=== PATIENT | female | born 1995 | race Two or more races ===

== ENCOUNTER 2016-09-27 21:14 | Emergency (ER) | payer OTHER ==
[2016-09-27 21:20] VITALS: BP 134/70; PULSE 63; BMI 29.8
--- NOTE | 2016-09-27 22:35 | PDOC ---
History of Present Illness - General Chief Complaint: Allergic Reaction Stated Complaint: ALLERGIC REACTION Time Seen by Provider: 09/27/16 21:55 History Source: Patient Exam Limitations: No Limitations - History of Present Illness Initial Comments: 09/27/16 22:38 My chief complaint: History of present illness: Patient is a 20-year-old female with a history of facial acne here today complaining of feeling slightly nauseous, weak, lightheaded. patient started to feel anxious, palpitations that lasted until she came here. She ate only one bagel this morning and then took her minocycline around 2:00 and at 5 pm felt lightheaded, nausea, weak and at 9 pm started to panic and have palpitations with tingling of face and fingers. Pt.has been taking this medication for a few years and they were not new. Patient denies any other medical problems. Patient is getting her menstrual cycle. She denies having any diaphoresis or any fever, sore throat cough chest discomfort or any difficulty breathing. Patient denies any diarrhea. 09/27/16 23:01 Timing/Duration: changing over time, other (slight lightheadedness now) Associated Symptoms: reports: other (lightheaded, tingling in fingers & face, palpitations,nausea) Past History - Past Medical History Allergies/Adverse Reactions: Allergies Allergy/AdvReac Type Severity Reaction Status Date / Time No Known Allergies Allergy Verified 09/27/16 21:20 Home Medications: Ambulatory Orders Minocycline HCl/Skin Cl No.4 [Minocin Kit 50 mg Combo] 50 mg MC ASDIR 12/29/14 - Immunization History Immunization Up to Date: Yes - Psycho/Social/Smoking Cessation Hx Anxiety: No Suicidal Ideation: No Smoking History: Never smoked Have you smoked in the past 12 months: No Hx Alcohol Use: No Drug/Substance Use Hx: No Substance Use Type: None Review of Systems - Review of Systems Able to Perform ROS?: Yes Constitutional: No: Symptoms Reported HEENTM: No: Symptoms Reported Respiratory: No: Symptoms reported Cardiac (ROS): Yes: Lightheadedness, Palpitations ABD/GI: Yes: Nausea (none now ) : No: Symptoms Reported Integumentary: No: Symptoms Reported Neurological: No: Symptoms reported *Physical Exam - Vital Signs Last Vital Signs Temp Pulse Resp BP Pulse Ox 97 F L 63 18 134/70 99 09/27/16 21:15 09/27/16 21:15 09/27/16 21:15 09/27/16 21:15 09/27/16 21:15 - Physical Exam General Appearance: Yes: Appropriately Dressed HEENT: positive: EOMI, PALOMO, Normal ENT Inspection Neck: negative: Lymphadenopathy (R), Lymphadenopathy (L) Respiratory/Chest: positive: Lungs Clear, Normal Breath Sounds. negative: Chest Tender, Respiratory Distress Cardiovascular: positive: Regular Rhythm, Regular Rate, S1, S2 Gastrointestinal/Abdominal: positive: Normal Bowel Sounds, Soft. 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 negative: Numbness, Sensory Deficit (on hands, arms and legs) Medical Decision Making - Medical Decision Making 09/27/16 23:02 Patient is a 20-year-old female with a history of facial acne here today complaining of feeling slightly nauseous, weak, lightheaded. patient started to feel anxious, palpitations that lasted until she came here. She ate only one bagel this morning and then took her minocycline around 2:00 and at 5 pm felt lightheaded, nausea, weak and at 9 pm started to panic and have palpitations with tingling of face and fingers. Pt.has been taking this medication for a few years and they were not new. Patient denies any other medical problems. Patient is getting her menstrual cycle. She denies having any diaphoresis or any fever, sore throat cough chest discomfort or any difficulty breathing. Patient denies any diarrhea. She reports being sexually active and does not use any control. pt.'s last menstrual cycle was 08/27/16 r/o r/o hypoglycemia panic attack nausea PLAN: urine hcg negative BG 110 zofran 4 mg sl now pt. able to eat and drink feeling better r 09/27/16 23:04 09/27/16 23:04 09/27/16 23:06 *DC/Admit/Observation/Transfer Diagnosis at time of Disposition: Panic attack, Nausea - Discharge Dispostion Condition at time of disposition: Stable - Patient Instructions Additional Instructions: Rest and drink fluids as tolerated need foods as tolerated Follow-up with your primary care provider within the next couple of days Return to emergency room if symptoms worsen or new symptoms develop Patient voiced understanding of discharge instructions and all questions were answered
[2016-09-27] MEDS ORDERED: ONDANSETRON *ODT* 4 MG TABLET ONE (22:57)
[2016-09-27] MEDS ORDERED: ONDANSETRON *ODT* 4 MG TABLET SL ONE (23:01)
[2016-09-27 23:07] VITALS: TEMP 98.3
== END 2016-09-27 23:07 | disposition home or self-care (01) ==
LOC: JERFT 21:14
DX: F41.0 Panic disorder [episodic paroxysmal anxiety] (principal); R11.0 Nausea
CPT/HCPCS: 84703; 99281-25

== ENCOUNTER 2016-12-27 05:18 | Emergency (ER) | payer OTHER ==
[2016-12-27 05:44] VITALS: TEMP 97.8; BMI 29.7
--- NOTE | 2016-12-27 05:51 | PDOC ---
History of Present Illness - General Chief Complaint: Back Pain Stated Complaint: LOW BACK PAIN Time Seen by Provider: 12/27/16 05:24 History Source: Patient Exam Limitations: No Limitations - History of Present Illness Initial Comments: 12/27/16 05:47 20yo Female patient with no significant past medical history presents to ED c/o atraumatic back pain that started around 230am this morning after getting off work. Patient states having similar symptoms previously, but today worse. She denies fever, CP, Abd pain, n/v/d, dizziness, confusion, disorientation, dysuria , hematuria, vaginal bleeding, discharge or odor. Past History - Travel Traveled outside of the country in the last 30 days: No Close contact w/someone who was outside of country & ill: No - Past Medical History Allergies/Adverse Reactions: Allergies Allergy/AdvReac Type Severity Reaction Status Date / Time No Known Allergies Allergy Verified 12/27/16 05:37 Home Medications: Ambulatory Orders Minocycline HCl/Skin Cl No.4 [Minocin Kit 50 mg Combo] 50 mg MC ASDIR 12/29/14 Cephalexin [Keflex] 500 mg PO BID #14 capsule 12/27/16 - Immunization History Immunization Up to Date: Yes - Psycho/Social/Smoking Cessation Hx Anxiety: No Suicidal Ideation: No Smoking History: Never smoked Have you smoked in the past 12 months: No Number of Cigarettes Smoked Daily: 0 Information on smoking cessation initiated: No Hx Alcohol Use: No Drug/Substance Use Hx: No Substance Use Type: None Review of Systems - Review of Systems Able to Perform ROS?: Yes Is the patient limited Vincentian proficient: No Constitutional: No: Chills, Fever : Yes: Flank Pain. No: Burning, Dysuria, Discharge, Hematuria, Pain, Urgency Musculoskeletal: Yes: Back Pain All Other Systems: Reviewed and Negative *Physical Exam - Vital Signs Last Vital Signs Temp Pulse Resp BP Pulse Ox 97.8 F 72 16 106/45 100 12/27/16 05:33 12/27/16 05:33 12/27/16 05:33 12/27/16 05:33 12/27/16 05:33 - Physical Exam General Appearance: Yes: Nourished, Appropriately Dressed. No: Apparent Distress, Mild Distress, Moderate Distress, Severe Distress Neck: positive: Trachea midline, Normal Thyroid, Supple. negative: Rigid, Stridor, Lymphadenopathy (R), Lymphadenopathy (L), Rigidity, Tender lateral, Tender midline, Thyromegaly Respiratory/Chest: positive: Lungs Clear, Normal Breath Sounds. negative: Chest Tender, Respiratory Distress, Accessory Muscle Use, Labored Respiration, Rapid RR, Rhonchi, Stridor, Wheezing Cardiovascular: positive: Regular Rhythm, Regular Rate Gastrointestinal/Abdominal: positive: Normal Bowel Sounds, Soft. negative: Distended, Guarding, Rebound, Tenderness Musculoskeletal: positive: Normal Inspection. negative: CVA Tenderness Extremity: positive: Normal Capillary Refill, Normal Inspection, Normal Range of Motion. negative: Pedal Edema, Swelling, Calf Tenderness, Erythema, Inflammation Integumentary: positive: Normal Color, Dry, Warm. 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, Fully Oriented, Alert, Normal Mood/ Affect, Normal Response, Motor Strength 08/22 ED Treatment Course - LABORATORY CBC & Chemistry Diagram: 12/27/16 05:37 12/27/16 05:37 - RADIOLOGY Radiology Studies Ordered: Category Date Time Status SPINE-LUMBAR ONLY [RAD] Stat Radiology 12/27/16 05:35 Ordered *DC/Admit/Observation/Transfer Diagnosis at time of Disposition: UTI (urinary tract infection) Qualifiers: Urinary tract infection type: acute cystitis Hematuria presence: without hematuria Qualified Code(s): N30.00 - Acute cystitis without hematuria - Discharge Dispostion Disposition: HOME Condition at time of disposition: Stable Admit: No - Prescriptions Prescriptions: Cephalexin [Keflex] 500 mg PO BID #14 capsule - Referrals Referrals: Natalee Carolina MD [Primary Care Provider] - - Patient Instructions Printed Discharge Instructions: DI for Urinary Tract Infection (UTI) Additional Instructions: Follow up with your primary care provider this week for further evaluation. Take medications as prescribed. Return if symptoms worsen or any concerns for further evaluation. Drink plenty fluids (water). Print Language: YORUBA - Post Discharge Activity Work/School Note: Back to Work
[2016-12-27 06:06] LABS: BASOPHIL 0.3 % (0-2.0); EOSINOPHIL 0.8 % (0-4.5); MCH 24.7 pg (25.7-33.7); MCHC 32.7 g/dl (32.0-36.0); MEAN CELL VOLUME 75.4 fl (80-96); MEAN PLT VOLUME 8.3 fl (7.5-11.1); PLATELET COUNT 203 K/MM3 (134-434); RDW 14.6 % (11.6-15.6); WHITE BLOOD COUNT 12.1 K/mm3 (4.0-10.0)
[2016-12-27 06:08] LABS: URINE APPEARANCE CLEAR; URINE BILIRUBIN NEGATIVE (NEGATIVE); URINE BLOOD NEGATIVE (NEGATIVE); URINE COLOR LTYELLOW; URINE GLUCOSE (UA) NEGATIVE (NEGATIVE); URINE KETONE NEGATIVE (NEGATIVE); URINE NITRITE NEGATIVE (NEGATIVE); URINE PROTEIN NEGATIVE (NEGATIVE); URINE UROBILINOGEN NEGATIVE mg/dL (0.2-1.0)
[2016-12-27 06:20] LABS: URINE LEUK ESTERASE 2+ (NEGATIVE)
[2016-12-27 06:21] LABS: URINE MUCUS RARE; URINE RBC 1 /hpf (0-3); URINE WBC 16 /hpf (3-5)
[2016-12-27 06:37] LABS: ALBUMIN 3.5 g/dl (3.4-5.0); ANION GAP 10 (8-16); BILIRUBIN,TOTAL 0.3 mg/dL (0.2-1.0); CALCIUM 8.5 mg/dL (8.5-10.1); CO2 24 mmol/L (21-32); CREATININE 0.6 mg/dL (0.55-1.02); GLUCOSE,RANDOM 106 mg/dL (74-106); SGOT/AST 26 U/L (15-37); SGPT/ALT 26 U/L (12-78); TOT PROT 6.4 g/dl (6.4-8.2)
[2016-12-27 06:38] LABS: ALK PHOS 61 U/L (45-117)
[2016-12-27] MEDS ORDERED: CEPHALEXIN MONOHYDRATE 500 MG CAPSULE (UD) PO ONE (06:45)
[2016-12-27] MEDS ORDERED: PHENAZOPYRIDINE HCL 100 MG TABLET (FP) PO ONE (06:45)
[2016-12-27] MEDS ORDERED: PHENAZOPYRIDINE HCL 100 MG TABLET (FP) ONE (06:51)
[2016-12-27] MEDS ORDERED: CEPHALEXIN MONOHYDRATE 250 MG CAPSULE (FP) ONE (06:51)
[2016-12-27 07:14] VITALS: BP 118/60; PULSE 75
== END 2016-12-27 07:19 | disposition home or self-care (01) ==
LOC: JER 05:18
DX: N30.00 Acute cystitis without hematuria (principal)
CPT/HCPCS: 36415; 72100-TC; 80053; 81003; 81015; 84703; 85025; 87086; 99282-25

== ENCOUNTER 2018-02-24 21:30 | Emergency (ER) | payer OTHER ==
[2018-02-24 21:40] VITALS: BP 125/81; PULSE 72; TEMP 98.4; BMI 26.6
--- NOTE | 2018-02-24 22:07 | PDOC ---
History of Present Illness - General Chief Complaint: Pain Stated Complaint: BACK PAIN Time Seen by Provider: 02/24/18 22:00 - History of Present Illness Initial Comments: 02/24/18 22:05 22-year-old female with lower back pain times one hour without radicular symptoms no comorbidities no loss of bowel bladder function or saddle paresthesia is have resolved since coming to the emergency room Past History - Past Medical History Allergies/Adverse Reactions: Allergies Allergy/AdvReac Type Severity Reaction Status Date / Time No Known Allergies Allergy Verified 02/24/18 21:41 Home Medications: Ambulatory Orders Minocycline HCl/Skin Cl No.4 [Minocin Kit 50 mg Combo] 50 mg MC ASDIR 12/29/14 Cephalexin [Keflex] 500 mg PO BID #14 capsule 12/27/16 Cyclobenzaprine HCl [Flexeril 10 mg] 10 mg PO HS PRN #10 tablet 02/24/18 Ibuprofen [Motrin -] 600 mg PO TID #30 tablet 02/24/18 COPD: No - Immunization History Immunization Up to Date: Yes - Suicide/Smoking/Psychosocial Hx Smoking History: Never smoked Have you smoked in the past 12 months: No Number of Cigarettes Smoked Daily: 0 Hx Alcohol Use: No Drug/Substance Use Hx: No Substance Use Type: None Review of Systems - Review of Systems Musculoskeletal: Yes: Back Pain *Physical Exam - Vital Signs Last Vital Signs Temp Pulse Resp BP Pulse Ox 98.4 F 72 18 125/81 100 02/24/18 21:36 02/24/18 21:36 02/24/18 21:36 02/24/18 21:36 02/24/18 21:36 - Physical Exam Comments: 02/24/18 22:06 HEAD: NC/AT EYES: Conjuntiva clear Ears: Canals and TM's normal NOSE: No d/c THROAT: Moist mucous membrances, oral pharanx clear, uvula midline NECK: Supple without adenopathy CARDIAC: S1 S2 LUNGS: CTA Full and Equal breath sounds ABDOMEN: Soft NT ND MS: Full ROM in all joints without edema NEUROLOGIC: No gross sensory or motor deficits, NVID SKIN: Normal color and temperature no lesions or rashes By spine skin color and temperature are normal range of motion is full and painful. She has moderate paralumbar musculature spasm. No tenderness. No CVA tenderness. 5 out of 5 strength in bilateral lower extremities without gross sensorimotor deficits negative straight leg raise test. She's neurovascular intact. Medical Decision Making - Medical Decision Making Had discussion with the patient the etiology of her symptoms. Her pain appears to be musculoskeletal L have prescribed for her muscle relaxer and anti- inflammatory as well as spine surgery follow-up. She states there is no chance of 02/24/18 22:04 *DC/Admit/Observation/Transfer Diagnosis at time of Disposition: Back pain - Discharge Dispostion Disposition: HOME Condition at time of disposition: Stable Decision to Admit order: No - Prescriptions Prescriptions: Cyclobenzaprine HCl [Flexeril 10 mg] 10 mg PO HS PRN #10 tablet PRN Reason: Muscle Spasms Ibuprofen [Motrin -] 600 mg PO TID #30 tablet - Referrals Referrals: Natalee Carolina MD [Primary Care Provider] - Lewis Hutton MD [Staff Physician] - - Patient Instructions Printed Discharge Instructions: Low Back Pain, DI for Low Back Pain Additional Instructions: The anti-inflammatory I have prescribed a few is 3 times a day with food it's one tablet 3 times a day. Discontinue the medication at the bothers her stomach. Return to the emergency room should symptoms worsen ago unresolved follow-up with spine surgery in 2-3 days for further evaluation and treatment options. Muscle relaxers one tablet before bedtime and will make you sleepy - Post Discharge Activity
== END 2018-02-24 22:11 | disposition home or self-care (01) ==
LOC: JERFT 21:30
DX: M54.5 Low back pain (principal)
CPT/HCPCS: 99281-25

== ENCOUNTER 2019-05-12 20:23 | Emergency (ER) | payer OTHER ==
--- NOTE | 2019-05-12 20:30 | PDOC ---
Rapid Medical Evaluation Time Seen by Provider: 05/12/19 20:26 Medical Evaluation: Allergies Allergy/AdvReac Type Severity Reaction Status Date / Time No Known Allergies Allergy Verified 02/24/18 21:41 05/12/19 20:28 CC: sharp back pain radiating around abdomen PE: No focal findings Orders: labs, urine Patient will proceed to ED for further evaluation. Discharge Disposition - Diagnosis Back pain - Referrals - Patient Instructions - Post Discharge Activity
[2019-05-12 20:32] VITALS: BP 146/90; PULSE 82; TEMP 97.8; BMI 27.3
--- NOTE | 2019-05-12 21:59 | PDOC ---
History of Present Illness - General Chief Complaint: Back Pain Stated Complaint: BACK PAIN Time Seen by Provider: 05/12/19 20:26 History Source: Patient Exam Limitations: No Limitations - History of Present Illness Initial Comments: 05/12/19 22:30 Chief complaint: Back pain Patient is a healthy 23-year-old female who was playing video games and developed sudden severe back pain that went on her whole back and then around her abdomen. She states she had this before, the last time a year ago, was seen here and told it was a back spasm. Patient is asymptomatic now. Patient did not take medicine at home but her mother put some kind of cream on her back when it happened. Patient has no fever, headache, shortness of breath, chest pain, nausea vomiting, abdominal pain or numbness. Patient is not on control, no recent travel, no family history of blood clots. GENERAL/CONSTITUTIONAL: No fever, weakness. dizziness HEAD, EYES, EARS, NOSE AND THROAT: No change in vision. No ear pain or discharge. No sore throat. CARDIOVASCULAR: No chest pain RESPIRATORY: No shortness of breath or cough GASTROINTESTINAL: No pain, nausea, vomiting, diarrhea or constipation GENITOURINARY: No dysuria MUSCULOSKELETAL: No neck or back pain SKIN: No rash NEUROLOGIC: No headache, vertigo, loss of consciousness, or loss of sensation. GENERAL: The patient is awake, alert, and fully oriented, in no acute distress. HEAD: Normal with no signs of trauma. EYES: Pupils equal, round and reactive to light, sclera anicteric, conjunctiva clear. ENT: pharynx: no erythema, no exudate, uvula midline NECK: supple CHEST: clear, nontender, rr ABD: soft, nontender BACK: no tenderness or signs of injury EXTREMITIES: Normal range of motion, no edema. NEUROLOGICAL: Normal speech, normal gait. Cranial nerves II through XII grossly intact, no gross focal abnormalities SKIN: Warm, Dry Past History - Past Medical History Allergies/Adverse Reactions: Allergies Allergy/AdvReac Type Severity Reaction Status Date / Time No Known Allergies Allergy Verified 05/12/19 20:32 Home Medications: Ambulatory Orders Cyclobenzaprine HCl [Flexeril 10 mg] 10 mg PO HS PRN #10 tablet 02/24/18 Ibuprofen [Motrin -] 600 mg PO TID #30 tablet 02/24/18 COPD: No - Immunization History Immunization Up to Date: Yes - Psycho Social/Smoking Cessation Hx Smoking History: Never smoked Have you smoked in the past 12 months: No Number of Cigarettes Smoked Daily: 0 Information on smoking cessation initiated: No Hx Alcohol Use: No Drug/Substance Use Hx: No Substance Use Type: None *Physical Exam - Vital Signs Last Vital Signs Temp Pulse Resp BP Pulse Ox 97.8 F 82 18 146/90 100 05/12/19 20:29 05/12/19 20:29 05/12/19 20:29 05/12/19 20:29 05/12/19 20:29 Medical Decision Making - Medical Decision Making 05/12/19 22:32 Healthy 23-year-old female who had back spasms at home prior to coming to ER, are now gone. Patient is not on control and has no risk factors for PE and clinical scenario is not consistent with PE. Patient appears well, vitals are stable, she is not tachycardic, she is not hypoxic. She denies any urinary symptoms. Patient is completely asymptomatic now. Patient does not need any further work-up and will be discharged home Discussed issues, findings, results, applicable medications and treatments and follow-up. All these were understood and all questions were answered Discharge - Discharge Information Problems reviewed: Yes Clinical Impression/Diagnosis: Back pain Qualifiers: Back pain location: back pain in unspecified location Chronicity: acute Back pain laterality: unspecified Qualified Code(s): M54.9 - Dorsalgia, unspecified Condition: Stable Disposition: HOME - Admission No - Follow up/Referral Referrals: Natalee Carolina MD [Primary Care Provider] - - Patient Discharge Instructions Patient Printed Discharge Instructions: DI for Back Spasm Additional Instructions: No heavy lifting or bending Apply warm compresses to the area that is bothering you Continue taking Motrin 600 mg every 6 hours for pain. Return to the nearest ER if numbness, weakness, severe pain, problems with urinating or having bowel movements. Call orthopedist today for an appointment for further evaluation - Post Discharge Activity
== END 2019-05-12 22:04 | disposition home or self-care (01) ==
LOC: JERFT 20:23
DX: M62.830 Muscle spasm of back (principal)
CPT/HCPCS: 99281-25

== ENCOUNTER 2019-11-26 20:06 | Emergency (ER) | payer OTHER ==
[2019-11-26 20:36] VITALS: BP 127/71; PULSE 76; TEMP 97.3; BMI 26.2
--- NOTE | 2019-11-26 21:15 | PDOC ---
History of Present Illness - General Chief Complaint: Rash Stated Complaint: RASH Time Seen by Provider: 11/26/19 20:51 History Source: Patient Exam Limitations: No Limitations - History of Present Illness Initial Comments: 11/26/19 21:07 23-year-old female history of acne on doxycycline 20 mg daily reports tender, erythematous rash to left lateral chest and right upper arm which she noticed 3 days ago. Has a puppy at home for the past 3 months. Denies new foods, soaps or medications. Denies insect bites, known sick contacts, recent travel, fever, chills, headache, body aches, chest pain, shortness of breath, difficulty breathing, cough, abdominal pain, nausea, vomiting, diarrhea, back pain or urinary symptoms. ROS: as above PE: GENERAL: well-appearing, NAD HEAD: NCAT EYES: Pupils equal, round and reactive to light, sclera anicteric, conjunctiva clear ENT: pharynx: no erythema, no exudate, uvula midline NECK: supple CHEST: nontender RESP: clear, no w/r/r CARDIO: rrr, no m/g/r ABD: +BS, soft, nontender, non distended BACK: no midline spinal ttp, no CVAT EXTREMITIES: Normal range of motion, no edema NEUROLOGICAL: Normal speech, normal gait SKIN: Approximately 15 cm x 20 cm warm erythematous area left lateral chest, well demarcated round area to right upper extremity approximately 5 cm in size Is this a multiple visit Asthma Patient?: No Past History - Medical History Allergies/Adverse Reactions: Allergies Allergy/AdvReac Type Severity Reaction Status Date / Time No Known Allergies Allergy Verified 05/12/19 20:32 Home Medications: Ambulatory Orders Cyclobenzaprine HCl [Flexeril 10 mg] 10 mg PO HS PRN #10 tablet 02/24/18 Ibuprofen [Motrin -] 600 mg PO TID #30 tablet 02/24/18 Doxycycline Monohydrate [Monodox] 100 mg PO Q12H #20 capsule 11/26/19 COPD: No - Reproductive History Is Patient Now?: No - Immunization History Immunization Up to Date: Yes - Psycho-Social/Smoking History Smoking History: Never smoked Have you smoked in the past 12 months: No Number of Cigarettes Smoked Daily: 0 - Substance Abuse Hx (Audit-C & DAST Scrn) How often the patient has a drink containing alcohol: Monthly or less Score: In Men: 4 or > Positive; In Women: 3 or > Positive: 1 Screen Result (Pos requires Nsg. Audit-10AR): Negative *Physical Exam - Vital Signs Last Vital Signs Temp Pulse Resp BP Pulse Ox 97.3 F L 76 20 127/71 100 11/26/19 20:15 11/26/19 20:15 11/26/19 20:15 11/26/19 20:15 11/26/19 20:15 Medical Decision Making - Medical Decision Making 11/26/19 21:15 23-year-old female history of acne on doxycycline 20 mg daily reports tender, erythematous rash to left lateral chest and right upper arm which she noticed 3 days ago. Has a puppy at home for the past 3 months. Denies new foods, soaps or medications. Denies insect bites, known sick contacts, recent travel, fever, chills, headache, body aches, chest pain, shortness of breath, difficulty breathing, cough, abdominal pain, nausea, vomiting, diarrhea, back pain or urinary symptoms. We will treat as cellulitis versus early Lyme Prescription for doxycycline 100 mg twice daily for 10 days lyme ab reflex ordered Return precautions discussed Advised to follow-up with PMD Discharge - Discharge Information Problems reviewed: Yes Clinical Impression/Diagnosis: Rash Condition: Stable - Admission No - Additional Discharge Information Prescriptions: Doxycycline Monohydrate [Monodox] 100 mg PO Q12H #20 capsule - Follow up/Referral - Patient Discharge Instructions Additional Instructions: Take doxycycline 100 mg 1 tablet twice a day for 10 days you will be contacted regarding your Lyme test results If you develop headache, fever, chills, body aches or any concerning symptoms return to ED - Post Discharge Activity
[2019-11-29 03:09] LABS: IgG Ab 23 kDa Band Absent (.); IgG Ab 28 kDa Band Absent (.)
== END 2019-11-26 22:00 | disposition home or self-care (01) ==
LOC: JERFT 20:06
DX: R21 Rash and other nonspecific skin eruption (principal)
CPT/HCPCS: 36415; 86618; 99283-25

== ENCOUNTER 2020-03-22 21:11 | Emergency (ER) | payer OTHER ==
[2020-03-22 21:54] VITALS: BMI 26.6
[2020-03-22] MEDS ORDERED: ACETAMINOPHEN 325 MG TABLET (FP) PO ONE (22:33)
[2020-03-22] MEDS ORDERED: ONDANSETRON 4 MG/2 ML VIAL IVPUSH ONE (22:34)
[2020-03-22] MEDS ORDERED: FAMOTIDINE 20 MG/50 ML IVPB 20 MG/50 ML MG IVPB ONE ×2 (22:34→22:50)
[2020-03-22] MEDS ORDERED: MAG HYDROX/AL HYDROX/SIMETH 30 ML UNIT-DOSE CUP PO ONE (22:36)
[2020-03-22] MEDS ORDERED: ONDANSETRON 4 MG/2 ML VIAL ONE (22:49)
[2020-03-22] MEDS ORDERED: ACETAMINOPHEN 325 MG TABLET (FP) ONE (22:49)
[2020-03-22] MEDS ORDERED: MAG HYDROX/AL HYDROX/SIMETH 30 ML UNIT-DOSE CUP ONE (22:49)
[2020-03-22 23:34] LABS: HEMATOCRIT 38.9 % (32.4-45.2); HEMOGLOBIN 12.5 GM/dL (10.7-15.3); MCH 24.6 pg (25.7-33.7); MCHC 32.2 g/dl (32.0-36.0); MEAN CELL VOLUME 76.5 fl (80-96); MEAN PLT VOLUME 8.8 fl (7.5-11.1); PLATELET COUNT 223 K/MM3 (134-434); RBC 5.09 M/mm3 (3.60-5.2); RDW 14.5 % (11.6-15.6); WHITE BLOOD COUNT 11.3 K/mm3 (4.0-10.0)
[2020-03-22 23:38] LABS: HCG,QUALITATIVE URINE Negative
[2020-03-22 23:39] LABS: EPI CELLS >36 /uL (0-25.1); HYALINE CASTS 5 /uL (0-3.1); URINE APPEARANCE CLOUDY; URINE BACTERIA 5140 /uL (0-1359); URINE BILIRUBIN NEGATIVE (NEGATIVE); URINE COLOR YELLOW; URINE GLUCOSE (UA) NEGATIVE (NEGATIVE); URINE KETONE TRACE (NEGATIVE); URINE LEUK ESTERASE TRACE (NEGATIVE); URINE NITRITE NEGATIVE (NEGATIVE); URINE PROTEIN NEGATIVE (NEGATIVE); URINE RBC 10 /uL (0-23.9); URINE UROBILINOGEN 0.2 mg/dL (0.2-1.0); URINE WBC 39 /uL (0-25.8)
[2020-03-23 00:24] LABS: ALBUMIN 3.9 g/dl (3.4-5.0); BLOOD UREA NITROGEN 15.1 mg/dL (7-18); CALCIUM 9.1 mg/dL (8.5-10.1)
[2020-03-23 00:27] LABS: CREATININE 0.7 mg/dL (0.55-1.3)
[2020-03-23 00:29] LABS: BILIRUBIN,TOTAL 0.2 mg/dL (0.2-1)
[2020-03-23 00:30] LABS: TOT PROT 7.7 g/dl (6.4-8.2)
[2020-03-23 01:37] VITALS: BP 124/77; PULSE 60; TEMP 98.2
== END 2020-03-23 01:25 | disposition home or self-care (01) ==
LOC: JER 21:11
PROC: 3E033GC Introduction of Other Therapeutic Substance into Peripheral Vein, Percutaneous Approach (ICD-10-PCS; principal; 2020-03-22)
PROC: 3E033GC Introduction of Other Therapeutic Substance into Peripheral Vein, Percutaneous Approach (ICD-10-PCS; 2020-03-22)
DX: R10.13 Epigastric pain (principal)
CPT/HCPCS: 36415; 71046-TC-FY; 80053; 81003; 83690; 84703; 85027; 87086; 93005; 93010; 99285-25

== ENCOUNTER 2021-08-27 12:25 | Inpatient (IN) | payer OTHER ==
[2021-08-27] MEDS ORDERED: AMPICILLIN SODIUM 2 GM VIAL ONE (12:44)
[2021-08-27] MEDS ORDERED: AMPICILLIN - 2 GM in SODIUM CHLORIDE 100 ML IVPB ONE (12:54)
[2021-08-27] MEDS ORDERED: ELECTROLYTE-148 SOLN 1,000 ML IV SCH (13:00)
[2021-08-27 13:31] LABS: BASO % 0.3 % (0-2.0); EOS % 0.1 % (0-4.5); HEMOGLOBIN 11.8 GM/dL (10.7-15.3); LYMPH % 13.8 % (8-40); MCH 24.7 pg (25.7-33.7); MCHC 32.8 g/dl (32.0-36.0); MEAN CELL VOLUME 75.2 fl (80-96); MONO % 6.2 % (3.8-10.2); NEUT % 79.6 % (42.8-82.8); PLATELET COUNT 233 10^3/uL (134-434); RBC 4.79 M/mm3 (3.60-5.2); RDW 15.3 % (11.6-15.6); WHITE BLOOD COUNT 10.4 K/mm3 (4.0-10.0)
[2021-08-27 13:49] LABS: CALCIUM 8.8 mg/dL (8.5-10.1)
[2021-08-27 13:50] LABS: BLOOD UREA NITROGEN 10.5 mg/dL (7-18)
[2021-08-27 13:53] LABS: CREATININE 0.6 mg/dL (0.55-1.3)
[2021-08-27 13:54] VITALS: BMI 29.0
[2021-08-27 14:01] LABS: INR 1.02 (0.83-1.09); PROTHROMBIN TIME (PATIENT) 11.7 SEC (9.7-13.0)
[2021-08-27 14:21] LABS: ACTIVATED PTT 27.6 SECONDS (25.2-36.5)
[2021-08-27] MEDS ORDERED: OXYTOCIN 30 UNITS in 0.9% NS 30 UNIT/500 ML INFUS.BAG IVPB ONE (15:44)
[2021-08-27] MEDS ORDERED: OXYTOCIN 30 UNITS in 0.9% NS 30 UNIT/500 ML INFUS.BAG IVPB SCH (16:15)
[2021-08-27] MEDS ORDERED: AMPICILLIN - 1 GM in SODIUM CHLORIDE 100 ML IVPB SCH (16:54)
[2021-08-27] MEDS ORDERED: AMPICILLIN SODIUM 1 GM VIAL ONE (16:55)
[2021-08-27] MEDS ORDERED: BUTORPHANOL TARTRATE 1 MG/ML VIAL ONE (17:16)
[2021-08-27] MEDS ORDERED: PROMETHAZINE HCL 25 MG/1 ML VIAL ONE (17:16)
[2021-08-27] MEDS ORDERED: BUTORPHANOL TARTRATE 1 MG/ML VIAL IVPUSH ONE (17:20)
[2021-08-27] MEDS ORDERED: PROMETHAZINE HCL 25 MG/1 ML VIAL IVPUSH ONE (17:20)
[2021-08-27] MEDS ORDERED: OXYTOCIN 20 UNITS in 0.9% NS 20 UNIT/1,000 ML INFUS.BAG IV ONE (17:44)
[2021-08-27] MEDS ORDERED: DEXTROSE 5%-LACTATED RINGERS 500 ML IV SCH (17:45)
[2021-08-27] MEDS ORDERED: LIDOCAINE HCL 1% PRESERVATIVE FREE - 30ML VIAL ONE (18:35)
[2021-08-27 19:41] LABS: CORD HCO3 17.3 mmHg (20-29); CORD PCO2 39.1 mmHg (30-78); CORD pH 7.264 (7.14-7.44)
[2021-08-27 19:42] LABS: CORD PCO2 67.6 mmHg (30-78); CORD pH 7.111 (7.14-7.44)
[2021-08-27] MEDS ORDERED: oxyCODONE HCL 5 MG TABLET PO PRN (20:19)
[2021-08-27] MEDS ORDERED: ACETAMINOPHEN 325 MG TABLET (FP) PO PRN (20:19)
[2021-08-27] MEDS ORDERED: METHYLERGONOVINE MALEATE 0.2 MG/1 ML AMP IM PRN (20:19)
[2021-08-27] MEDS ORDERED: BISACODYL 10 MG SUPP.RECT RC PRN (20:19)
[2021-08-27] MEDS ORDERED: BENZOCAINE 20% 57 GM BOTTLE TP PRN (20:19)
[2021-08-27] MEDS ORDERED: WITCH HAZEL 50% (TUCKS) 40 PAD/JAR PAD TP PRN (20:19)
[2021-08-27] MEDS ORDERED: BENZOCAINE 28 GM HEMORRHOIDAL OINTMENT TP PRN (20:19)
[2021-08-27] MEDS ORDERED: IBUPROFEN 600 MG TABLET (FP) PO PRN (20:19)
[2021-08-27] MEDS ORDERED: OXYTOCIN 20 UNITS in 0.9% NS 20 UNIT/1,000 ML INFUS.BAG IV SCH (20:30)
[2021-08-28 08:17] LABS: BASO % 0.1 % (0-2.0); EOS % 0.1 % (0-4.5); HEMATOCRIT 29.5 % (32.4-45.2); HEMOGLOBIN 9.7 GM/dL (10.7-15.3); MCHC 33.1 g/dl (32.0-36.0); MEAN CELL VOLUME 75.5 fl (80-96); MEAN PLT VOLUME 8.3 fl (7.5-11.1); MONO % 7.2 % (3.8-10.2); NEUT % 75.6 % (42.8-82.8); PLATELET COUNT 195 10^3/uL (134-434); RDW 15.1 % (11.6-15.6); WHITE BLOOD COUNT 13.9 K/mm3 (4.0-10.0)
[2021-08-28] MEDS: PRENATAL VITAMINS W/ FOLIC ACID TABLET (FP) PO SCH (09:10)
[2021-08-28] MEDS: FERROUS SO4 325 MG TABLET (FP) PO SCH ×2 (09:10→16:56)
[2021-08-28] MEDS ORDERED: DIPHTH,PERTUSS(ACELL),TET 0.5 ML DISP.SYRIN IM ONE (10:00)
[2021-08-28] MEDS ORDERED: SENNOSIDES/DOCUSATE COMBO (SENNA PLUS) TABLET (UD) PO PRN (22:00)
[2021-08-29] MEDS: FERROUS SO4 325 MG TABLET (FP) PO SCH (09:19)
[2021-08-29] MEDS: PRENATAL VITAMINS W/ FOLIC ACID TABLET (FP) PO SCH (09:19)
[2021-08-29 10:41] VITALS: BP 129/70; PULSE 72; TEMP 98
== END 2021-08-29 12:40 | disposition home or self-care (01) | DRG 560 ==
LOC: JLDR 12:25 → J3W 21:05
PROVIDERS: ADMIT Obstetrics & Gynecology; ATTEND Obstetrics & Gynecology
PROC: 10E0XZZ Delivery of Products of Conception, External Approach (ICD-10-PCS; principal; 2021-08-27)
PROC: 0W8NXZZ Division of Female Perineum, External Approach (ICD-10-PCS; 2021-08-27)
DX: O24.410 Gestational diabetes mellitus in pregnancy, diet controlled (principal); O99.824 Streptococcus B carrier state complicating childbirth; O42.02 Full-term premature rupture of membranes, onset of labor within 24 hours of rupture; B95.1 Streptococcus, group B, as the cause of diseases classified elsewhere; Z3A.37 37 weeks gestation of pregnancy; Z37.0 Single live birth
CPT/HCPCS: 36415; 36600; 59409; 80048; 82803; 82962; 85025; 85610; 85730; 86780; 86850; 86900; 86901; 90715; C9803-CS; U0003; U0005

== ENCOUNTER 2021-09-02 23:53 | Emergency (ER) | payer OTHER ==
[2021-09-03 00:54] VITALS: BP 114/76; PULSE 77; TEMP 97.7; BMI 27.2
== END 2021-09-03 02:04 | disposition home or self-care (01) ==
LOC: JER 23:53
DX: O90.89 Other complications of the puerperium, not elsewhere classified (principal)
CPT/HCPCS: 99281-25

== ENCOUNTER 2022-05-09 21:37 | Emergency (ER) | payer OTHER ==
[2022-05-09 21:52] VITALS: BP 128/84; PULSE 76; RESP 18; TEMP 98.1; BMI 26.6
[2022-05-09] MEDS ORDERED: TETRACAINE 0.5% HCL 0.6ML DROPPER.BOTTLE OS ONE (22:07)
[2022-05-09] MEDS ORDERED: FLUORESCEIN NA 1 EA STRIP OS ONE (22:08)
[2022-05-09] MEDS ORDERED: TETRACAINE 0.5% OPHTH SOLN 2 ML BOTTLE ONE (22:08)
[2022-05-09] MEDS ORDERED: FLUORESCEIN NA 1 EA STRIP ONE (22:10)
[2022-05-09] MEDS ORDERED: ERYTHROMYCIN 0.5% OPHTHALMIC OINTMENT 3.5 GM TUBE OU STA (22:35)
[2022-05-09] MEDS ORDERED: ERYTHROMYCIN 0.5% OPHTHALMIC OINTMENT 3.5 GM TUBE ONE (22:36)
== END 2022-05-09 22:51 | disposition home or self-care (01) ==
LOC: JERFT 21:37 → JER 21:37 → JERFT 22:51
DX: S05.01XA Injury of conjunctiva and corneal abrasion without foreign body, right eye, initial encounter (principal); W50.4XXA Accidental scratch by another person, initial encounter
CPT/HCPCS: 99283-25

== ENCOUNTER 2022-08-20 19:23 | Emergency (ER) | payer OTHER ==
[2022-08-20 19:28] VITALS: BP 120/76; PULSE 89; RESP 17; TEMP 97.9; BMI 27.3
[2022-08-20] MEDS ORDERED: TETRACAINE 0.5% OPHTH SOLN 2 ML BOTTLE OD ONE (20:49)
[2022-08-20] MEDS ORDERED: FLUORESCEIN NA 1 EA STRIP OD ONE (20:49)
[2022-08-20] MEDS ORDERED: NEO/POLYMYX B SULF/DEXAMETH OPHTHALMIC OINTMENT 3.5 GM OD ONE (20:57)
== END 2022-08-20 21:51 | disposition home or self-care (01) ==
LOC: JERFT 19:23
DX: H57.11 Ocular pain, right eye (principal); H53.71 Glare sensitivity; S05.01XA Injury of conjunctiva and corneal abrasion without foreign body, right eye, initial encounter; X58.XXXA Exposure to other specified factors, initial encounter
CPT/HCPCS: 99283-25

== ENCOUNTER 2023-02-06 23:57 | Emergency (ER) | payer OTHER ==
[2023-02-07 00:01] VITALS: BP 112/70; PULSE 69; RESP 18; TEMP 98.4; BMI 26.6
[2023-02-07 01:11] LABS: BASO % 0.2 % (0-2.0); EOS % 2.4 % (0-4.5); HEMATOCRIT 35.9 % (32.4-45.2); HEMOGLOBIN 12.1 GM/dL (10.7-15.3); LYMPH % 35.2 % (8-40); MCH 25.4 pg (25.7-33.7); MCHC 33.7 g/dl (32.0-36.0); MEAN CELL VOLUME 75.5 fl (80-96); MEAN PLT VOLUME 7.8 fl (7.5-11.1); MONO % 6.8 % (3.8-10.2); NEUT % 55.4 % (42.8-82.8); PLATELET COUNT 252 10^3/uL (134-434); RBC 4.75 M/mm3 (3.60-5.2); RDW 14.8 % (11.6-15.6); WHITE BLOOD COUNT 9.8 K/mm3 (4.0-10.0)
[2023-02-07 01:13] LABS: EPI CELLS 33 /uL (0-25.1); HYALINE CASTS 1 /uL (0-3.1); PH,URINE 6.5 (5.0-8.0); URINE APPEARANCE CLOUDY; URINE BACTERIA 351 /uL (0-1359); URINE BILIRUBIN NEGATIVE (NEGATIVE); URINE COLOR RED; URINE GLUCOSE (UA) NEGATIVE (NEGATIVE); URINE KETONE NEGATIVE (NEGATIVE); URINE LEUK ESTERASE 2+ (NEGATIVE); URINE NITRITE NEGATIVE (NEGATIVE); URINE PROTEIN 1+ (NEGATIVE); URINE RBC 7572 /uL (0-23.9); URINE WBC 313 /uL (0-25.8)
[2023-02-07 01:30] LABS: POTASSIUM 3.9 mmol/L (3.5-5.1)
[2023-02-07 01:31] LABS: HCG,QUALITATIVE URINE Negative
[2023-02-07 01:33] LABS: ALBUMIN 3.7 g/dl (3.4-5.0); BLOOD UREA NITROGEN 16.5 mg/dL (7-18); CALCIUM 8.7 mg/dL (8.5-10.1)
[2023-02-07 01:36] LABS: CREATININE 0.7 mg/dL (0.55-1.3)
[2023-02-07 01:38] LABS: BILIRUBIN,TOTAL 0.2 mg/dL (0.2-1); TOT PROT 7.1 g/dl (6.4-8.2)
== END 2023-02-07 04:12 | disposition home or self-care (01) ==
LOC: JER 23:57
DX: M54.9 Dorsalgia, unspecified (principal); K80.70 Calculus of gallbladder and bile duct without cholecystitis without obstruction
CPT/HCPCS: 36415; 71045-TC-FY; 76705-TC; 80053; 81003; 83690; 84484; 84703; 85025; 87086; 93005; 93010; 99285-25

== ENCOUNTER 2023-04-16 20:07 | Inpatient (IN) | payer OTHER ==
[2023-04-16 20:11] VITALS: BMI 26.4
[2023-04-16 23:49] LABS: BASO % 0.7 % (0-2.0); EOS % 1.4 % (0-4.5); HEMATOCRIT 38.1 % (32.4-45.2); HEMOGLOBIN 12.2 GM/dL (10.7-15.3); LYMPH % 27.9 % (8-40); MCH 24.5 pg (25.7-33.7); MCHC 31.9 g/dl (32.0-36.0); MEAN CELL VOLUME 76.7 fl (80-96); MEAN PLT VOLUME 7.7 fl (7.5-11.1); MONO % 7.4 % (3.8-10.2); NEUT % 62.6 % (42.8-82.8); PLATELET COUNT 276 10^3/uL (134-434); RBC 4.97 M/mm3 (3.60-5.2); RDW 14.3 % (11.6-15.6); WHITE BLOOD COUNT 9.7 K/mm3 (4.0-10.0)
[2023-04-16 23:55] LABS: EPI CELLS >36 /uL (0-25.1); HYALINE CASTS 3 /uL (0-3.1); PH,URINE 7.5 (5.0-8.0); URINE APPEARANCE TURBID; URINE BACTERIA 14 /uL (0-1359); URINE BILIRUBIN 1+ (NEGATIVE); URINE COLOR RED; URINE GLUCOSE (UA) NEGATIVE (NEGATIVE); URINE KETONE NEGATIVE (NEGATIVE); URINE LEUK ESTERASE 2+ (NEGATIVE); URINE NITRITE NEGATIVE (NEGATIVE); URINE PROTEIN 2+ (NEGATIVE); URINE UROBILINOGEN 0.2 mg/dL (0.2-1.0); URINE WBC 168 /uL (0-25.8)
[2023-04-16 23:55] LABS: INR 1.13 (0.83-1.09); PROTHROMBIN TIME (PATIENT) 13.1 SEC (9.7-13.0)
[2023-04-16 23:58] LABS: ACTIVATED PTT 30.9 SECONDS (25.2-36.5)
[2023-04-17 00:02] LABS: POTASSIUM 4.2 mmol/L (3.5-5.1)
[2023-04-17 00:05] LABS: ALBUMIN 3.6 g/dl (3.4-5.0); BLOOD UREA NITROGEN 21.9 mg/dL (7-18)
[2023-04-17 00:08] LABS: CREATININE 0.7 mg/dL (0.55-1.3)
[2023-04-17 00:10] LABS: TOT PROT 7.5 g/dl (6.4-8.2)
[2023-04-17 00:36] LABS: BILIRUBIN,TOTAL 0.1 mg/dL (0.2-1)
[2023-04-17] MEDS ORDERED: SODIUM CHLORIDE 1,000 ML IV SCH (03:00)
[2023-04-17 08:04] LABS: YEAST NONE SEEN (NEGATIVE)
[2023-04-17] MEDS ORDERED: BUPIVACAINE HCL/PF 0.25% (2.5MG/ML) 10 ML VIAL ONE (09:54)
[2023-04-17] MEDS ORDERED: CEFTRIAXONE 1 GM/50 ML BAG ONE (09:59)
[2023-04-17 10:00] LABS: HEMATOCRIT 35.6 % (32.4-45.2); HEMOGLOBIN 11.5 GM/dL (10.7-15.3); MCH 24.7 pg (25.7-33.7); MCHC 32.3 g/dl (32.0-36.0); MEAN CELL VOLUME 76.5 fl (80-96); MEAN PLT VOLUME 8.2 fl (7.5-11.1); PLATELET COUNT 259 10^3/uL (134-434); RBC 4.65 M/mm3 (3.60-5.2); RDW 14.1 % (11.6-15.6); WHITE BLOOD COUNT 7.4 K/mm3 (4.0-10.0)
[2023-04-17] MEDS ORDERED: CEFTRIAXONE 1 GM in DEXTROSE 5%-WATER - 50 ML IVPB SCH (10:00)
[2023-04-17] MEDS ORDERED: MIDAZOLAM HCL 2 MG/2 ML SINGLE DOSE VIAL ONE (10:09)
[2023-04-17] MEDS ORDERED: PROPOFOL 20 ML ONE ×3 (10:09→13:59)
[2023-04-17] MEDS ORDERED: ROCURONIUM BROMIDE 50 MG/5 ML SYRINGE ONE ×2 (10:10→12:24)
[2023-04-17] MEDS ORDERED: SUCCINYLCHOLINE CHLORIDE 200 MG/10 ML SYRINGE ONE (10:10)
[2023-04-17] MEDS ORDERED: ONDANSETRON 4 MG/2 ML VIAL IVPUSH PRN ×2 (10:20→14:58)
[2023-04-17] MEDS ORDERED: PROMETHAZINE HCL 25 MG/1 ML VIAL IVPB PRN (10:20)
[2023-04-17] MEDS ORDERED: LACTATED RINGERS SOLUTION 1,000 ML IV SCH (10:30)
[2023-04-17 10:54] LABS: ALBUMIN 3.3 g/dl (3.4-5.0); BLOOD UREA NITROGEN 17.4 mg/dL (7-18); CALCIUM 8.5 mg/dL (8.5-10.1)
[2023-04-17 10:57] LABS: CREATININE 0.5 mg/dL (0.55-1.3)
[2023-04-17 10:59] LABS: BILIRUBIN,TOTAL 0.2 mg/dL (0.2-1); TOT PROT 6.6 g/dl (6.4-8.2)
[2023-04-17] MEDS ORDERED: cefTRIAXone SODIUM 1 GM VIAL IVPB ONE (11:30)
[2023-04-17] MEDS ORDERED: NEOSTIGMINE METHYLSULFATE 0.5 MG/1 ML - 10 ML MDV ONE (11:45)
[2023-04-17] MEDS ORDERED: BUPIVACAINE HCL/PF 0.25% (2.5MG/ML) 10 ML VIAL IJ ONE ×2 (11:51)
[2023-04-17] MEDS ORDERED: oxyCODONE HCL 5 MG TABLET PO PRN ×2 (14:58)
[2023-04-17] MEDS: LACTATED RINGERS SOLUTION 1,000 ML IV SCH (21:36)
[2023-04-17] MEDS: ACETAMINOPHEN 1000 MG/100 ML BAG IVPB SCH (21:36)
[2023-04-17] MEDS: DOCUSATE SODIUM 100 MG CAPSULE (FP) PO SCH (21:36)
[2023-04-18] MEDS: ACETAMINOPHEN 1000 MG/100 ML BAG IVPB SCH ×3 (03:42→14:01)
[2023-04-18] MEDS ORDERED: INSULIN ASPART SLIDING SCALE (NOVOLOG) 1 VIAL SQ ONE (06:48)
[2023-04-18] MEDS: DOCUSATE SODIUM 100 MG CAPSULE (FP) PO SCH ×3 (06:51→21:15)
[2023-04-18] MEDS: LACTATED RINGERS SOLUTION 1,000 ML IV SCH ×3 (06:57→23:45)
[2023-04-19] MEDS: DOCUSATE SODIUM 100 MG CAPSULE (FP) PO SCH ×2 (05:43→13:19)
[2023-04-19 05:45] VITALS: RESP 18
[2023-04-19 13:24] VITALS: BP 131/75; PULSE 65; TEMP 98.1
== END 2023-04-19 15:00 | disposition home or self-care (01) | DRG 263 ==
LOC: JER 20:07 → JERBED 04-17 02:19 → J6S 04-17 16:39
PROVIDERS: ADMIT Internal Medicine
PROC: 0FT44ZZ Resection of Gallbladder, Percutaneous Endoscopic Approach (ICD-10-PCS; principal; 2023-04-17 10:00)
DX: K80.12 Calculus of gallbladder with acute and chronic cholecystitis without obstruction (principal); R10.11 Right upper quadrant pain
CPT/HCPCS: 36415; 76705-TC; 80053; 81003; 83690; 83735; 84703; 85025; 85027; 85610; 85730; 87086; 88304-TC; 93005; 93010; 94760; 99285-25

== ENCOUNTER 2023-10-15 19:42 | Emergency (ER) | payer OTHER ==
[2023-10-15 19:46] VITALS: BP 100/64; PULSE 84; RESP 17; TEMP 98.2; BMI 27.3
[2023-10-15] MEDS ORDERED: ACETAMINOPHEN 325 MG TABLET (FP) ONE (21:18)
[2023-10-15] MEDS: ACETAMINOPHEN 325 MG TABLET (FP) PO ONE (21:21)
[2023-10-15 22:11] LABS: BASO % 0.2 % (0-2.0); EOS % 2.7 % (0-4.5); HEMATOCRIT 35.7 % (32.4-45.2); HEMOGLOBIN 11.8 GM/dL (10.7-15.3); LYMPH % 28.5 % (8-40); MCH 25.1 pg (25.7-33.7); MONO % 5.6 % (3.8-10.2); PLATELET COUNT 214 10^3/uL (134-434); RDW 14.7 % (11.6-15.6); WHITE BLOOD COUNT 8.6 K/mm3 (4.0-10.0)
[2023-10-15 22:28] LABS: POTASSIUM 3.8 mmol/L (3.5-5.1)
[2023-10-15 22:30] LABS: ALBUMIN 3.8 g/dl (3.4-5.0); BLOOD UREA NITROGEN 15.7 mg/dL (7-18); CALCIUM 8.1 mg/dL (8.5-10.1)
[2023-10-15 22:34] LABS: CREATININE 0.6 mg/dL (0.55-1.3)
[2023-10-15 22:35] LABS: BILIRUBIN,TOTAL 0.3 mg/dL (0.2-1); TOT PROT 7.3 g/dl (6.4-8.2)
== END 2023-10-15 23:20 | disposition home or self-care (01) ==
LOC: JER 19:42
DX: R10.11 Right upper quadrant pain (principal); R10.13 Epigastric pain
CPT/HCPCS: 36415; 80053; 83690; 84703; 85025; 99283-25

== ENCOUNTER 2023-12-01 02:56 | Emergency (ER) | payer OTHER ==
[2023-12-01 03:00] VITALS: BP 117/58; PULSE 62; RESP 18; TEMP 98.1; BMI 26.6
[2023-12-01] MEDS ORDERED: MECLIZINE HCL 25 MG TABLET (FP) ONE (03:19)
[2023-12-01] MEDS ORDERED: ONDANSETRON *ODT* 4 MG TABLET ONE (03:19)
[2023-12-01] MEDS: ONDANSETRON *ODT* 4 MG TABLET SL ONE (03:22)
[2023-12-01] MEDS: MECLIZINE HCL 25 MG TABLET (FP) PO ONE (03:22)
== END 2023-12-01 04:06 | disposition home or self-care (01) ==
LOC: JER 02:56
DX: R42 Dizziness and giddiness (principal); R11.0 Nausea
CPT/HCPCS: 99283-25; Q0162

== ENCOUNTER 2024-09-29 16:44 | Emergency (ER) | payer OTHER ==
[2024-09-29 16:50] VITALS: BMI 29.0
[2024-09-29 18:42] LABS: EPI CELLS >36 /uL (0-25.1); HYALINE CASTS 7 /uL (0-3.1); PH,URINE 5.5 (5.0-8.0); URINE APPEARANCE CLOUDY; URINE BACTERIA >9,000 /uL (0-1359); URINE BILIRUBIN NEGATIVE (NEGATIVE); URINE COLOR DK YELLOW; URINE GLUCOSE (UA) NEGATIVE (NEGATIVE); URINE KETONE 2+ (NEGATIVE); URINE LEUK ESTERASE 1+ (NEGATIVE); URINE NITRITE NEGATIVE (NEGATIVE); URINE PROTEIN 1+ (NEGATIVE); URINE RBC 16 /uL (0-23.9); URINE UROBILINOGEN 0.2 mg/dL (0.2-1.0); URINE WBC 233 /uL (0-25.8)
[2024-09-29] MEDS: SODIUM CHLORIDE 0.9% 500 ML INFUS.BAG IV ONE (18:45)
[2024-09-29 20:47] VITALS: BP 119/76; PULSE 68; RESP 17; TEMP 97.7
== END 2024-09-29 21:00 | disposition home or self-care (01) ==
LOC: JER 16:44
DX: O23.43 Unspecified infection of urinary tract in pregnancy, third trimester (principal); O26.893 Other specified pregnancy related conditions, third trimester; R42 Dizziness and giddiness; O21.9 Vomiting of pregnancy, unspecified; Z3A.32 32 weeks gestation of pregnancy
CPT/HCPCS: 81003; 87086; 93005; 93010; 99284-25

== ENCOUNTER 2024-12-13 19:41 | Inpatient (IN) | payer OTHER ==
[2024-12-13] MEDS: ELECTROLYTE-148 SOLN 1,000 ML IV SCH (20:30)
[2024-12-13 21:02] VITALS: BMI 29.0
[2024-12-13 21:46] LABS: ABSOLUTE IMMATURE GRANULOCYTES 0.06 x10^3/uL (0.0-0.031); BASOPHILS # 0.01 x10^3/uL (0.01-0.08); EOSINOPHIL % 0.3 % (0.7-5.8); EOSINOPHILS # 0.03 x10^3/uL (0.04-0.36); MCHC 31.4 g/dl (32.2-35.5); MEAN CELL VOLUME 79.5 fl (79.4-94.8); MEAN PLT VOLUME 9.9 fl (9.4-12.3); MONOCYTE # 0.63 x10^3/uL (0.24-0.86); MONOCYTE % 6.4 % (4.7-12.5); RDW 15.1 % (12.1-16.5)
[2024-12-13 22:08] LABS: GLUCOSE,RANDOM 76.0 mg/dL (74-106)
[2024-12-13 22:10] LABS: CO2 17.0 mmol/L (21-32)
[2024-12-13 22:12] LABS: ACTIVATED PTT 27.1 SECONDS (25.2-36.5); INR 1.0 (0.83-1.09); PROTHROMBIN TIME (PATIENT) 11.0 SEC (9.7-13.0)
[2024-12-13 22:13] LABS: CREATININE 0.56 mg/dL (0.55-1.3)
[2024-12-13 22:34] LABS: HIV INTERPRETATION NEGATIVE (NEGATIVE)
[2024-12-13] MEDS: OXYTOCIN 30 UNITS in 0.9% NS 30 UNIT/500 ML INFUS.BAG IVPB SCH (23:30)
[2024-12-13] MEDS ORDERED: PROMETHAZINE HCL 25 MG/1 ML VIAL ONE (23:42)
[2024-12-13] MEDS ORDERED: BUTORPHANOL TARTRATE 2 MG/ML VIAL ONE (23:42)
[2024-12-13] MEDS: BUTORPHANOL TARTRATE 2 MG/ML VIAL IVPB ONE (23:45)
[2024-12-13] MEDS: PROMETHAZINE HCL 25 MG/1 ML VIAL IVPB ONE (23:45)
[2024-12-14] MEDS ORDERED: LIDOCAINE HCL 1% PRESERVATIVE FREE - 30ML VIAL ONE (00:28)
[2024-12-14] MEDS ORDERED: OXYTOCIN 20 UNITS in 0.9% NS 20 UNIT/1,000 ML INFUS.BAG IV ONE (00:28)
[2024-12-14] MEDS: OXYTOCIN 20 UNITS in 0.9% NS 20 UNIT/1,000 ML INFUS.BAG IV SCH (01:05)
[2024-12-14] MEDS ORDERED: BENZOCAINE 28 GM HEMORRHOIDAL OINTMENT TP PRN (01:25)
[2024-12-14] MEDS ORDERED: IBUPROFEN 600 MG TABLET (FP) PO PRN (01:25)
[2024-12-14] MEDS ORDERED: ACETAMINOPHEN 325 MG TABLET (FP) PO PRN (01:25)
[2024-12-14] MEDS ORDERED: BISACODYL 10 MG SUPP.RECT RC PRN (01:25)
[2024-12-14] MEDS ORDERED: WITCH HAZEL 50% (TUCKS) 40 PAD/JAR PAD TP PRN (01:25)
[2024-12-14] MEDS ORDERED: METHYLERGONOVINE MALEATE 0.2 MG/1 ML AMP IM PRN (01:25)
[2024-12-14] MEDS ORDERED: BENZOCAINE 20% 57 GM BOTTLE TP PRN (01:25)
[2024-12-14 01:46] LABS: CORD BASE EXCESS -6.0 mmol/L (0-2); CORD HCO3 19.9 mmHg (20-29); CORD PCO2 40.7 mmHg (30-78); CORD pH 7.307 (7.14-7.44)
[2024-12-14 01:53] LABS: CORD BASE EXCESS -8.8 mmol/L (0-2); CORD HCO3 19.4 mmHg (20-29); CORD PCO2 50.6 mmHg (30-78); CORD pH 7.202 (7.14-7.44)
[2024-12-14] MEDS: FERROUS SO4 325 MG TABLET (FP) PO SCH (09:42)
[2024-12-14] MEDS: PRENATAL VITAMINS W/ FOLIC ACID TABLET (FP) PO SCH (09:42)
[2024-12-14] MEDS: DIPHTH,PERTUSS(ACELL),TET 0.5 ML DISP.SYRIN IM ONE (09:42)
[2024-12-14 17:40] VITALS: RESP 18
[2024-12-15 08:25] LABS: ABSOLUTE IMMATURE GRANULOCYTES 0.06 x10^3/uL (0.0-0.031); BASOPHILS # 0.02 x10^3/uL (0.01-0.08); EOSINOPHIL % 1.0 % (0.7-5.8); EOSINOPHILS # 0.10 x10^3/uL (0.04-0.36); MCHC 30.9 g/dl (32.2-35.5); MEAN CELL VOLUME 81.1 fl (79.4-94.8); MEAN PLT VOLUME 11.1 fl (9.4-12.3); MONOCYTE # 0.57 x10^3/uL (0.24-0.86); MONOCYTE % 5.9 % (4.7-12.5); RDW 15.3 % (12.1-16.5)
[2024-12-15] MEDS ORDERED: SENNOSIDES/DOCUSATE COMBO (SENNA PLUS) TABLET (UD) PO PRN (22:00)
[2024-12-16 09:45] VITALS: BP 114/68; PULSE 67; TEMP 98.4
== END 2024-12-16 22:19 | disposition home or self-care (01) | DRG 560 ==
LOC: JLDR 19:41 → J3W 12-14 03:20
PROVIDERS: ADMIT Obstetrics & Gynecology; ATTEND Obstetrics & Gynecology
PROC: 10E0XZZ Delivery of Products of Conception, External Approach (ICD-10-PCS; principal; 2024-12-14)
PROC: 0HQ9XZZ Repair Perineum Skin, External Approach (ICD-10-PCS; 2024-12-14)
PROC: 0W8NXZZ Division of Female Perineum, External Approach (ICD-10-PCS; 2024-12-14)
DX: O24.429 Gestational diabetes mellitus in childbirth, unspecified control (principal); O99.214 Obesity complicating childbirth; O70.0 First degree perineal laceration during delivery; Z3A.40 40 weeks gestation of pregnancy; Z37.0 Single live birth
CPT/HCPCS: 36415; 36600; 59409; 80048; 82803; 82962; 85025; 85610; 85730; 86780; 86850; 86900; 86901; 87389; 90715